=== PATIENT | female | born 1985 | race Caucasian/White ===

== ENCOUNTER 2024-04-01 05:30 | Inpatient (IN) | payer BC ==
[2024-04-01 05:58] VITALS: BMI 31.8
[2024-04-01] MEDS ORDERED: hydrALAZINE 20 MG/ML VIAL SLOW IVP PRN ×2 (06:41→10:20)
[2024-04-01] MEDS ORDERED: Lidocaine 1% (PF) 30 ML VIAL SC PRN ×2 (06:41→06:44)
[2024-04-01] MEDS ORDERED: Promethazine HCl 25 MG/ML VIAL IM PRN (06:41)
[2024-04-01] MEDS ORDERED: Ondansetron PF 4 MG/2 ML Vial IVP PRN (06:41)
[2024-04-01] MEDS ORDERED: Oxytocin 30 units/NS 500 ML 500 ML IV SCH (06:45)
[2024-04-01] MEDS: Oxytocin 30 units/NS 500 ML 500 ML IV SCH (07:10)
[2024-04-01 07:11] LABS: Hematocrit 34.7 % (34.9-44.5); Hemoglobin 11.9 g/dL (12.0-15.5); Mean Corpuscular HGB CONC 34.3 g/dL (32.0-36.0); Mean Corpuscular Hemoglobin 30.2 pg (27.0-33.0); Mean Corpuscular Volume 88.1 fL (81.6-98.3); Mean Platelet Volume 12.7 fL (7.4-10.4); Platelet Count 166 10x3/uL (150-450); RBC Distribution Width 13.6 % (11.5-14.5); Red Blood Cell (RBC) Count 3.94 10x6/uL (3.90-5.03); White Blood Cell (WBC) Count 9.7 10x3/uL (3.5-10.5)
[2024-04-01] MEDS: fentaNYL/Ropivacaine Epidural 100 ML ONE (07:27)
[2024-04-01 07:42] LABS: HBsAg Index 0.18 S/CO (0-0.99); Hep B Surf Ag - L&D Non-Reactive S/CO (NonReactive); Syphilis Antibody Nonreactive (Nonreactive); Syphilis Antibody Index 0.06 S/CO (<1.00 Non-Reactive)
[2024-04-01] MEDS ORDERED: Lanolin Ointment 7 GM TUBE TOP PRN (10:20)
[2024-04-01] MEDS ORDERED: Milk Of Magnesia 30 ML UDCUP PO PRN (10:20)
[2024-04-01] MEDS ORDERED: Boostrix 0.5 ML (Tdap) VIAL (>/=7 yrs of age) IM ONE (10:20)
[2024-04-01] MEDS ORDERED: Bisacodyl 10 MG SUPP PR PRN (10:20)
[2024-04-01] MEDS: traMADol HCl 50 MG TAB PO PRN (11:57)
[2024-04-01] MEDS: Benzocaine-Menthol 82.5 ML CAN TOP PRN (11:58)
[2024-04-01] MEDS: Oxytocin 30 units/NS 500 ML 500 ML ONE (13:51)
[2024-04-01] MEDS: Ibuprofen 800 MG TAB PO SCH (13:52)
[2024-04-01] MEDS: Ferrous Sulfate 325 MG TAB PO SCH (17:19)
[2024-04-01] MEDS: Docusate 100 MG CAP PO SCH (21:34)
[2024-04-02] MEDS: Prenatal Vitamin 1 TAB PO SCH (08:27)
[2024-04-02 20:21] VITALS: TEMP 97.9
[2024-04-03 08:06] VITALS: BP 123/74
[2024-04-03] MEDS: Acetaminophen 500 MG TAB PO PRN (09:30)
== END 2024-04-03 17:15 | disposition home or self-care (01) | DRG 807 ==
LOC: CSHLD 05:40 → CSHPP 11:30
PROVIDERS: ADMIT Obstetrics & Gynecology; ATTEND Obstetrics & Gynecology
PROC: 10E0XZZ Delivery of Products of Conception, External Approach (ICD-10-PCS; principal; 2024-04-01)
PROC: 0KQM0ZZ Repair Perineum Muscle, Open Approach (ICD-10-PCS; 2024-04-01)
DX: O34.211 Maternal care for low transverse scar from previous cesarean delivery (principal); Z37.0 Single live birth; Z3A.39 39 weeks gestation of pregnancy; Z79.82 Long term (current) use of aspirin; Z79.899 Other long term (current) drug therapy; Z91.040 Latex allergy status; Z91.048 Other nonmedicinal substance allergy status; O70.1 Second degree perineal laceration during delivery
CPT/HCPCS: 85027; 86780; 86850; 86900; 86901; 87340; J2590